=== PATIENT | male | born 1945 | race Caucasian/White ===

== ENCOUNTER 2019-08-24 14:03 | Inpatient (IN) | payer OTHER, MEDICAID ==
[~2019-08-24] VITALS: Ht 165.1 cm; Wt 107.0 kg
[~2019-08-24 14:03] MED LIST: AMLO5TAB88 MT; ATOR40TA70 PO; BACL20TA PO; GLIMEPIRIDE PO; HYDR100T26 MT; OMEP40CA34 PO; POTA8CAP20 PO; SULI200T4 PO; TAMS-11 PO; TRIC160 PO
[2019-08-24] MEDS ORDERED: VANCOMYCIN 1 G PREMIX 200 ML IV ONE (18:30)
[2019-08-24] MEDS ORDERED: PIPERACILLIN/TAZ 3.375G PREMIX 50 ML IV ONE (18:30)
[2019-08-24 19:23] LABS: BASOPHILS % 0.5 % (0.0-2.0); EOSINOPHILS % 4.7 % (0.0-5.0); HEMATOCRIT. 22.1 % (42.0-52.0); HEMOGLOBIN. 7.5 g/dL (14.0-18.0); MEAN CORPUSCULAR HEMOGLOBIN 31.1 pg (28.0-32.0); MEAN CORPUSCULAR VOLUME 91.4 fL (80.0-94.0); MEAN PLATELET VOLUME 7.7 fl (7.4-10.4); MONOCYTES % 6.1 % (2.0-8.0); NEUTROPHILS % 74.7 % (40.0-76.0); PLATELET 379 x1000/uL (130-400); RED BLOOD CELL COUNT 2.41 mill/uL (4.7-6.1); RED CELL DISTRIBUTION WIDTH 13.6 % (11.6-14.6)
[2019-08-24 19:28] LABS: CHLORIDE 109 mEq/L (98-107)
[2019-08-24 19:33] LABS: ETHANOL BLOOD < 10 mg/dL
[2019-08-24 19:35] LABS: PARTIAL THROMBOPLASTIN TIME 37.2 sec (23.4-31.0); PROTHROMBIN TIME 10.7 sec (9.6-11.0)
[2019-08-24 21:16] LABS: CLARITY URINE CLEAR (CLEAR); COLOR URINE YELLOW (YELLOW); KETONES URINE NEGATIVE (NEGATIVE); LEUKOCYTE ESTERASE URINE NEGATIVE (NEGATIVE); NITRITE URINE NEGATIVE (NEGATIVE); OCCULT BLOOD URINE NEGATIVE (NEGATIVE); PH URINE 5.5 (4.5-8.0); PROTEIN URINE 1+ (NEGATIVE); SPECIFIC GRAVITY URINE 1.012 (1.005-1.030); UROBILINOGEN URINE 0.2 E.U./dL (0.2-1.0)
[2019-08-24 21:30] LABS: *AMPHETAMINES SCREEN URINE NEGATIVE (NEGATIVE); *BARBITURATES SCREEN URINE NEGATIVE (NEGATIVE); *BENZODIAZEPINES SCREEN URINE NEGATIVE (NEGATIVE); *COCAINE SCREEN URINE NEGATIVE (NEGATIVE); CANNABINOID URINE SCREEN NEGATIVE (NEGATIVE); METHADONE URINE SCREEN NEGATIVE (NEGATIVE); OPIATES URINE SCREEN NEGATIVE (NEGATIVE); PHENCYCLIDINE URINE SCREEN NEGATIVE (NEGATIVE)
[2019-08-24 22:15] VITALS: BP 155/65
[2019-08-25 01:42] VITALS: BP 155/65
[2019-08-25] MEDS ORDERED: DEXTROSE 50% WATER 50ML SYRINGE IV PRN (01:45)
[2019-08-25 04:00] VITALS: BP 143/61
[2019-08-25] MEDS: PIPERACILLIN/TAZOBACTAM 2.25 G in DEXTROSE 5% WATER 50 ML IV SCH ×3 (05:16→20:36)
[2019-08-25] MEDS ORDERED: PIPERACILLIN/TAZOBACTAM 3.375 G in DEXT 5% WATER 100 ML IV SCH (06:00)
[2019-08-25] MEDS: BLOOD SUGAR DIAGNOSTIC STRIP TEST SCH ×4 (07:20→21:00)
[2019-08-25] MEDS: INSULIN LISPRO 100 UNITS/ML SUBCUT SCH ×4 (07:50→21:00)
[2019-08-25] MEDS: LISINOPRIL 20MG TABLET PO SCH (08:25)
[2019-08-25] MEDS: VANCOMYCIN 750 MG PREMIX 150 ML IV SCH (08:25)
[2019-08-25 16:10] LABS: TOTAL IRON BINDING CAPACITY 215 ug/dL (250-450)
[2019-08-25 20:00] VITALS: BP 133/64
[2019-08-25] MEDS: MORPHINE SULFATE 2 MG/ML CPJ (NOT FOR IM USE) IV PRN (23:11)
[2019-08-26] VITALS: BP 141/62
[2019-08-26] MEDS: PIPERACILLIN/TAZOBACTAM 2.25 G in DEXTROSE 5% WATER 50 ML IV SCH ×2 (02:53→11:07)
[2019-08-26 04:00] VITALS: BP 134/58
[2019-08-26 06:16] LABS: BASOPHILS % 0.6 % (0.0-2.0); EOSINOPHILS % 5.5 % (0.0-5.0); HEMATOCRIT. 22.1 % (42.0-52.0); HEMOGLOBIN. 7.4 g/dL (14.0-18.0); LYMPHOCYTES % 13.9 % (20.0-50.0); MEAN CORPUSCULAR HEMOGLOBIN 30.1 pg (28.0-32.0); MEAN CORPUSCULAR VOLUME 89.6 fL (80.0-94.0); MEAN PLATELET VOLUME 7.5 fl (7.4-10.4); MONOCYTES % 6.7 % (2.0-8.0); NEUTROPHILS % 73.3 % (40.0-76.0); PLATELET 342 x1000/uL (130-400); RED BLOOD CELL COUNT 2.47 mill/uL (4.7-6.1); RED CELL DISTRIBUTION WIDTH 13.8 % (11.6-14.6)
[2019-08-26] MEDS: BLOOD SUGAR DIAGNOSTIC STRIP TEST SCH ×4 (06:21→20:34)
[2019-08-26] MEDS: INSULIN LISPRO 100 UNITS/ML SUBCUT SCH ×4 (07:50→20:49)
[2019-08-26 08:00] VITALS: BP 137/59
[2019-08-26] MEDS: LISINOPRIL 20MG TABLET PO SCH (08:20)
[2019-08-26] MEDS: VANCOMYCIN 750 MG PREMIX 150 ML IV SCH (08:20)
[2019-08-26] MEDS: ACETAMINOPHEN WITH CODEINE 300/30MG TABLET PO PRN (09:41)
[2019-08-26 12:00] VITALS: BP 140/60
[2019-08-26] MEDS: FERROUS SULFATE 325MG TABLET PO SCH ×2 (12:42→17:13)
[2019-08-26] MEDS: DOCUSATE SODIUM 100MG CAPSULE PO SCH ×2 (12:42→17:13)
[2019-08-26] MEDS ORDERED: CEFTRIAXONE 2 G PREMIX 50 ML IV SCH (13:00)
[2019-08-26 16:00] VITALS: BP 149/62
[2019-08-26] MEDS: CEFTRIAXONE 2 G in DEXTROSE 5% WATER 50 ML IV SCH (17:15)
[2019-08-26 20:00] VITALS: BP 153/59
[2019-08-26] MEDS: MORPHINE SULFATE 2 MG/ML CPJ (NOT FOR IM USE) IV PRN (20:26)
[2019-08-27] VITALS: BP 168/68
[2019-08-27] MEDS: MORPHINE SULFATE 2 MG/ML CPJ (NOT FOR IM USE) IV PRN ×2 (00:01→15:12)
[2019-08-27 04:00] VITALS: BP 128/56
[2019-08-27 07:10] LABS: BASOPHILS % 0.4 % (0.0-2.0); EOSINOPHILS % 5.9 % (0.0-5.0); HEMATOCRIT. 21.7 % (42.0-52.0); HEMOGLOBIN. 7.3 g/dL (14.0-18.0); MEAN CORPUSCULAR HEMOGLOBIN 30.7 pg (28.0-32.0); MEAN CORPUSCULAR VOLUME 90.6 fL (80.0-94.0); MEAN PLATELET VOLUME 7.7 fl (7.4-10.4); MONOCYTES % 6.9 % (2.0-8.0); NEUTROPHILS % 72.8 % (40.0-76.0); PLATELET 347 x1000/uL (130-400); RED CELL DISTRIBUTION WIDTH 13.6 % (11.6-14.6)
[2019-08-27] MEDS: BLOOD SUGAR DIAGNOSTIC STRIP TEST SCH ×4 (07:22→21:48)
[2019-08-27] MEDS: INSULIN LISPRO 100 UNITS/ML SUBCUT SCH ×4 (07:23→21:00)
[2019-08-27 08:00] VITALS: BP 154/65
[2019-08-27] MEDS: DOCUSATE SODIUM 100MG CAPSULE PO SCH ×2 (08:40→16:18)
[2019-08-27] MEDS: LISINOPRIL 20MG TABLET PO SCH (08:40)
[2019-08-27] MEDS: FERROUS SULFATE 325MG TABLET PO SCH ×3 (08:40→17:26)
[2019-08-27] MEDS: ACETAMINOPHEN WITH CODEINE 300/30MG TABLET PO PRN (11:32)
[2019-08-27 12:00] VITALS: BP 155/69
[2019-08-27] MEDS: ENOXAPARIN 40MG/0.4ML SYR SUBCUT SCH (12:18)
[2019-08-27] MEDS: CEFTRIAXONE 2 G in DEXTROSE 5% WATER 50 ML IV SCH (13:31)
[2019-08-27 20:00] VITALS: BP 169/71
[2019-08-27] MEDS ORDERED: SODIUM POLYSTYRENE SULFONATE 15 G/60 ML BOT PO NR (21:00)
[2019-08-28] VITALS: BP 151/60
[2019-08-28] MEDS: MORPHINE SULFATE 2 MG/ML CPJ (NOT FOR IM USE) IV PRN ×3 (00:46→18:02)
[2019-08-28 04:00] VITALS: BP 146/71
[2019-08-28] MEDS: BLOOD SUGAR DIAGNOSTIC STRIP TEST SCH ×4 (06:11→21:00)
[2019-08-28 06:17] LABS: BASOPHILS % 0.8 % (0.0-2.0); EOSINOPHILS % 5.5 % (0.0-5.0); HEMATOCRIT. 22.8 % (42.0-52.0); HEMOGLOBIN. 7.7 g/dL (14.0-18.0); LYMPHOCYTES % 13.6 % (20.0-50.0); MEAN CORPUSCULAR VOLUME 88.8 fL (80.0-94.0); MEAN PLATELET VOLUME 7.7 fl (7.4-10.4); MONOCYTES % 5.6 % (2.0-8.0); NEUTROPHILS % 74.5 % (40.0-76.0); PLATELET 338 x1000/uL (130-400); RED BLOOD CELL COUNT 2.57 mill/uL (4.7-6.1); RED CELL DISTRIBUTION WIDTH 13.6 % (11.6-14.6)
[2019-08-28] MEDS: INSULIN LISPRO 100 UNITS/ML SUBCUT SCH ×4 (07:50→21:00)
[2019-08-28 08:00] VITALS: BP 159/71
[2019-08-28] MEDS: ENOXAPARIN 40MG/0.4ML SYR SUBCUT SCH (08:58)
[2019-08-28] MEDS: FERROUS SULFATE 325MG TABLET PO SCH ×3 (08:58→17:09)
[2019-08-28] MEDS: DOCUSATE SODIUM 100MG CAPSULE PO SCH ×2 (08:58→17:09)
[2019-08-28 12:00] VITALS: BP 156/67
[2019-08-28] MEDS: LISINOPRIL 20MG TABLET PO SCH (12:20)
[2019-08-28] MEDS: CEFTRIAXONE 2 G in DEXTROSE 5% WATER 50 ML IV SCH (14:17)
[2019-08-28 16:00] VITALS: BP 150/67
[2019-08-28 20:00] VITALS: BP 145/69
[2019-08-28] MEDS ORDERED: SODIUM POLYSTYRENE SULFONATE 15 G/60 ML BOT PO NR (20:00)
[2019-08-29] VITALS: BP 137/62
[2019-08-29] MEDS: MORPHINE SULFATE 2 MG/ML CPJ (NOT FOR IM USE) IV PRN (03:24)
[2019-08-29 04:00] VITALS: BP 130/63
[2019-08-29] MEDS: BLOOD SUGAR DIAGNOSTIC STRIP TEST SCH ×4 (07:20→21:00)
[2019-08-29] MEDS: INSULIN LISPRO 100 UNITS/ML SUBCUT SCH ×4 (07:50→21:00)
[2019-08-29] MEDS ORDERED: SODIUM BICARBONATE 4% (2.4MEQ) 5ML VIAL IV ONE (08:06)
[2019-08-29] MEDS ORDERED: LIDOCAINE HCL 1% 20ML VIAL (Pyxis) INJ ONE (08:06)
[2019-08-29 08:24] LABS: BASOPHILS % 0.5 % (0.0-2.0); EOSINOPHILS % 4.8 % (0.0-5.0); HEMATOCRIT. 22.2 % (42.0-52.0); HEMOGLOBIN. 7.6 g/dL (14.0-18.0); LYMPHOCYTES % 14.3 % (20.0-50.0); MEAN CORPUSCULAR HEMOGLOBIN 30.7 pg (28.0-32.0); MEAN CORPUSCULAR VOLUME 89.4 fL (80.0-94.0); MEAN PLATELET VOLUME 7.8 fl (7.4-10.4); MONOCYTES % 7.1 % (2.0-8.0); NEUTROPHILS % 73.3 % (40.0-76.0); PLATELET 335 x1000/uL (130-400); RED BLOOD CELL COUNT 2.48 mill/uL (4.7-6.1); RED CELL DISTRIBUTION WIDTH 13.9 % (11.6-14.6)
[2019-08-29] MEDS: CEFTRIAXONE 2 G in DEXTROSE 5% WATER 50 ML IV SCH (11:49)
[2019-08-29] MEDS: DOCUSATE SODIUM 100MG CAPSULE PO SCH ×2 (11:49→17:00)
[2019-08-29] MEDS: FERROUS SULFATE 325MG TABLET PO SCH ×3 (11:49→17:50)
[2019-08-29] MEDS: ENOXAPARIN 40MG/0.4ML SYR SUBCUT SCH (11:49)
[2019-08-29 12:00] VITALS: BP 147/56
[2019-08-29] MEDS: LISINOPRIL 20MG TABLET PO SCH (12:38)
[2019-08-29 20:00] VITALS: BP 149/59
[2019-08-30] VITALS: BP 135/53
[2019-08-30] MEDS: ACETAMINOPHEN WITH CODEINE 300/30MG TABLET PO PRN ×3 (03:48→19:42)
[2019-08-30 04:00] VITALS: BP 150/61
[2019-08-30] MEDS: BLOOD SUGAR DIAGNOSTIC STRIP TEST SCH ×4 (06:07→21:00)
[2019-08-30] MEDS: INSULIN LISPRO 100 UNITS/ML SUBCUT SCH ×4 (07:37→21:00)
[2019-08-30 08:00] VITALS: BP 154/58
[2019-08-30] MEDS: DOCUSATE SODIUM 100MG CAPSULE PO SCH ×2 (08:33→17:33)
[2019-08-30] MEDS: FERROUS SULFATE 325MG TABLET PO SCH ×3 (08:33→17:33)
[2019-08-30] MEDS: LISINOPRIL 20MG TABLET PO SCH (08:34)
[2019-08-30] MEDS: ENOXAPARIN 40MG/0.4ML SYR SUBCUT SCH (08:35)
[2019-08-30 12:00] VITALS: BP 150/60
[2019-08-30] MEDS: CEFTRIAXONE 2 G in DEXTROSE 5% WATER 50 ML IV SCH (13:37)
[2019-08-30 16:00] VITALS: BP 137/59
[2019-08-30 20:00] VITALS: BP 140/60
[2019-08-31] VITALS: BP 145/47
[2019-08-31] MEDS: ACETAMINOPHEN WITH CODEINE 300/30MG TABLET PO PRN (02:15)
[2019-08-31 04:00] VITALS: BP 134/50
[2019-08-31] MEDS: BLOOD SUGAR DIAGNOSTIC STRIP TEST SCH ×2 (07:20→12:07)
[2019-08-31] MEDS: INSULIN LISPRO 100 UNITS/ML SUBCUT SCH ×2 (07:50→12:43)
[2019-08-31 08:00] VITALS: BP 152/59
[2019-08-31] MEDS: ENOXAPARIN 40MG/0.4ML SYR SUBCUT SCH (09:19)
[2019-08-31] MEDS: FERROUS SULFATE 325MG TABLET PO SCH ×2 (09:19→12:44)
[2019-08-31] MEDS: DOCUSATE SODIUM 100MG CAPSULE PO SCH (09:19)
[2019-08-31] MEDS: LISINOPRIL 20MG TABLET PO SCH (09:20)
[2019-08-31 12:00] VITALS: BP 129/63
[2019-08-31 12:08] VITALS: BP 129/63
[2019-08-31] MEDS: CEFTRIAXONE 2 G in DEXTROSE 5% WATER 50 ML IV SCH (14:17)
== END 2019-08-31 15:44 | disposition home health service (06) | DRG 863 ==
LOC: ER 14:03 → 6EST 20:09 → ENRESERV 20:29
PROVIDERS: ADMIT Internal Medicine; ATTEND Internal Medicine
PROC: 02HV33Z Insertion of Infusion Device into Superior Vena Cava, Percutaneous Approach (ICD-10-PCS; principal; 2019-08-29)
PROC: B518ZZA Fluoroscopy of Superior Vena Cava, Guidance (ICD-10-PCS; 2019-08-29)
PROC: B548ZZA Ultrasonography of Superior Vena Cava, Guidance (ICD-10-PCS; 2019-08-29)
DX: T81.49XA Infection following a procedure, other surgical site, initial encounter (principal); E11.52 Type 2 diabetes mellitus with diabetic peripheral angiopathy with gangrene; E44.0 Moderate protein-calorie malnutrition; M86.8X7 Other osteomyelitis, ankle and foot; L97.429 Non-pressure chronic ulcer of left heel and midfoot with unspecified severity; N18.4 Chronic kidney disease, stage 4 (severe); L03.116 Cellulitis of left lower limb; T87.54 Necrosis of amputation stump, left lower extremity; E11.69 Type 2 diabetes mellitus with other specified complication; E11.621 Type 2 diabetes mellitus with foot ulcer; E11.22 Type 2 diabetes mellitus with diabetic chronic kidney disease; E78.5 Hyperlipidemia, unspecified; E87.8 Other disorders of electrolyte and fluid balance, not elsewhere classified; E78.00 Pure hypercholesterolemia, unspecified; D64.9 Anemia, unspecified; I12.9 Hypertensive chronic kidney disease with stage 1 through stage 4 chronic kidney disease, or unspecified chronic kidney disease; Y83.8 Other surgical procedures as the cause of abnormal reaction of the patient, or of later complication, without mention of misadventure at the time of the procedure; E66.9 Obesity, unspecified; E11.40 Type 2 diabetes mellitus with diabetic neuropathy, unspecified; E87.5 Hyperkalemia; Z68.39 Body mass index [BMI] 39.0-39.9, adult; Z87.891 Personal history of nicotine dependence; Z98.41 Cataract extraction status, right eye; Z98.42 Cataract extraction status, left eye; Y92.89 Other specified places as the place of occurrence of the external cause
CPT/HCPCS: 36415; 36573; 71045; 73630; 73721; 76937; 80048; 80053; 80202; 80305; 80320; 81003; 82728; 82962; 83540; 83550; 83605; 83880; 84145; 84484; 85025; 87070; 87077; 87186; 93005; 96365; 96368; 99285; C1725; J0696; J1650; J1815; J2270; J2543; J3370; J3490; J7040; J7060; G0480

== ENCOUNTER 2020-10-18 06:53 | Inpatient (IN) | payer OTHER, MEDICAID ==
[~2020-10-18] VITALS: Ht 165.1 cm; Wt 117.0 kg
[~2020-10-18 06:53] MED LIST changes: +OMEP40CA12 PO; -OMEP40CA34 PO
[2020-10-18] MEDS ORDERED: ATROPINE SULFATE 1MG/10ML SYR IV ONE (07:30)
[2020-10-18 07:51] LABS: HEMATOCRIT. 23.9 % (42.0-52.0); HEMOGLOBIN. 7.8 g/dL (14.0-18.0); MEAN CORPUSCULAR HEMOGLOBIN 29.5 pg (28.0-32.0); MEAN CORPUSCULAR VOLUME 90.7 fL (80.0-94.0); MEAN PLATELET VOLUME 8.3 fl (7.4-10.4); PLATELET 276 x1000/uL (130-400); RED BLOOD CELL COUNT 2.64 mill/uL (4.7-6.1); RED CELL DISTRIBUTION WIDTH 15.1 % (11.6-14.6)
[2020-10-18 08:01] LABS: CHLORIDE 104 mEq/L (98-107)
[2020-10-18 08:22] LABS: NUCLEATED RED BLOOD CELLS 1 /100 WBC; PLATELET ESTIMATE NORMAL
[2020-10-18] MEDS ORDERED: FUROSEMIDE 100MG/10ML VIAL IV STA (08:50)
[2020-10-18] MEDS ORDERED: ALBUTEROL (0.083%) 2.5MG/3ML NEB HHN ONE (09:00)
[2020-10-18] MEDS ORDERED: SODIUM BICARBONATE 8.4% 1 MEQ/ML 50ML SYR IV ONE (09:00)
[2020-10-18] MEDS ORDERED: INSULIN REGULAR (HUMULIN R) 300UNITS/3ML VIAL IV ONE (09:00)
[2020-10-18] MEDS ORDERED: CALCIUM CHLORIDE 1GM/10ML SYR IV ONE (09:00)
[2020-10-18] MEDS ORDERED: DEXTROSE 50% WATER 50ML SYRINGE IV ONE (09:00)
[2020-10-18] MEDS ORDERED: SODIUM BICARBONATE 8.4% 1 MEQ/ML 50ML SYR IV NR (10:15)
[2020-10-18] MEDS ORDERED: SODIUM POLYSTYRENE SULFONATE 15 G/60 ML BOT PO NR (10:15)
[2020-10-18 11:12] LABS: PARTIAL THROMBOPLASTIN TIME 39.8 sec (23.4-31.0)
[2020-10-18 11:48] LABS: BG CARBOXYHEMOGLOBIN 0.2 % (0.5-1.5); BG DEOXYHEMOGLOBIN 2.5 % (0.0-5.0); BG FRACTION INSPIRED OXYGEN 36; BG HCO3 ACT 26.2 mmol/L (22.0-26.0); BG METHEMOGLOBIN 0.5 % (0.0-1.5); BG OXYGEN SATURATION 97.5 % (92.0-98.5); BG OXYHEMOGLOBIN 96.8 % (94.0-97.0); BG PCO2 44.8 mmHg (35.0-45.0); BG PH 7.385 (7.350-7.450); BG PO2 115.8 mmHg (75.0-100.0); BG SAMPLE SITE RIGHT BRACHIAL; BG VENT MODE NASAL CANNULA
[2020-10-18] MEDS ORDERED: ONDANSETRON HCL 4MG/2ML INJ IV PRN (12:45)
[2020-10-18] MEDS ORDERED: DEXTROSE 50% WATER 50ML SYRINGE IV PRN (12:45)
[2020-10-18] MEDS ORDERED: HYDROCODONE/ACETAMINOPHEN 5/325MG TABLET PO NR (15:00)
[2020-10-18] MEDS: BLOOD SUGAR DIAGNOSTIC STRIP TEST SCH ×2 (18:34→21:55)
[2020-10-18] MEDS: INSULIN LISPRO 100 UNITS/ML SUBCUT SCH ×2 (18:34→21:00)
[2020-10-18 18:58] VITALS: BP 144/60
[2020-10-18 20:00] VITALS: BP 106/62
[2020-10-18] MEDS: HYDROCODONE/ACETAMINOPHEN 5/325MG TABLET PO PRN (22:25)
[2020-10-19] VITALS: BP 150/60
[2020-10-19] MEDS: EPOETIN ALFA-EPBX 10,000 UNIT/ML VIAL SUBCUT SCH (00:05)
[2020-10-19 04:00] VITALS: BP 90/60
[2020-10-19] MEDS: INSULIN LISPRO 100 UNITS/ML SUBCUT SCH ×4 (06:54→20:31)
[2020-10-19] MEDS: BLOOD SUGAR DIAGNOSTIC STRIP TEST SCH ×4 (06:54→20:31)
[2020-10-19 07:07] LABS: HEMATOCRIT. 22.9 % (42.0-52.0); HEMOGLOBIN. 7.6 g/dL (14.0-18.0); MEAN CORPUSCULAR HEMOGLOBIN 29.5 pg (28.0-32.0); MEAN CORPUSCULAR VOLUME 89.2 fL (80.0-94.0); MEAN PLATELET VOLUME 8.3 fl (7.4-10.4); PLATELET 276 x1000/uL (130-400); RED BLOOD CELL COUNT 2.57 mill/uL (4.7-6.1); RED CELL DISTRIBUTION WIDTH 14.7 % (11.6-14.6)
[2020-10-19 07:29] LABS: PHOSPHORUS 4.7 mg/dL (2.5-4.9)
[2020-10-19 08:00] VITALS: BP 124/59
[2020-10-19] MEDS ORDERED: PNEUMOCOCCAL 23-VAL P-SAC VAC 0.5 ML IM ONE (09:00)
[2020-10-19 12:00] VITALS: BP 124/64
[2020-10-19] MEDS ORDERED: INFLUENZA VACCINE 05/PF 0.5 ML VIAL IM ONE (12:00)
[2020-10-19 16:00] VITALS: BP 125/57
[2020-10-19] MEDS: HYDROCODONE/ACETAMINOPHEN 5/325MG TABLET PO PRN ×2 (17:34→23:10)
[2020-10-19] MEDS: AMLODIPINE 5MG TABLET PO SCH (18:24)
[2020-10-19 19:45] LABS: TOTAL IRON BINDING CAPACITY 233 ug/dL (250-450)
[2020-10-19 20:00] VITALS: BP 137/50
[2020-10-19] MEDS: ATORVASTATIN CALCIUM 40MG TABLET PO SCH (21:22)
[2020-10-20] VITALS (7 sets, daily range): BP systolic 115–135; BP diastolic 39–77
[2020-10-20 02:04] LABS: PLATELET ESTIMATE NORMAL
[2020-10-20] MEDS: BLOOD SUGAR DIAGNOSTIC STRIP TEST SCH ×4 (05:58→20:45)
[2020-10-20] MEDS: INSULIN LISPRO 100 UNITS/ML SUBCUT SCH ×4 (06:22→20:46)
[2020-10-20 06:52] LABS: HEMATOCRIT. 22.2 % (42.0-52.0); HEMOGLOBIN. 7.5 g/dL (14.0-18.0); MEAN CORPUSCULAR HEMOGLOBIN 30.3 pg (28.0-32.0); MEAN CORPUSCULAR VOLUME 90.2 fL (80.0-94.0); PLATELET 273 x1000/uL (130-400); RED BLOOD CELL COUNT 2.46 mill/uL (4.7-6.1); RED CELL DISTRIBUTION WIDTH 14.8 % (11.6-14.6)
[2020-10-20 07:09] LABS: PHOSPHORUS 4.3 mg/dL (2.5-4.9)
[2020-10-20 07:19] LABS: HEPATITIS B SURFACE AB < 3.1 mIU/mL
[2020-10-20 07:30] LABS: HEPATITIS B SURFACE ANTIGEN NEGATIVE
[2020-10-20] MEDS: AMLODIPINE 5MG TABLET PO SCH ×2 (09:11→22:00)
[2020-10-20] MEDS: HYDROCODONE/ACETAMINOPHEN 5/325MG TABLET PO PRN (10:46)
[2020-10-20] MEDS ORDERED: NITROGLYCERIN 0.4MG TABLET SL SL PRN (11:30)
[2020-10-20 19:59] LABS: PLATELET ESTIMATE NORMAL
[2020-10-20] MEDS: EPOETIN ALFA-EPBX 10,000 UNIT/ML VIAL SUBCUT SCH (21:00)
[2020-10-20] MEDS: ATORVASTATIN CALCIUM 40MG TABLET PO SCH (22:00)
[2020-10-21] VITALS: BP 129/89
[2020-10-21] MEDS: BLOOD SUGAR DIAGNOSTIC STRIP TEST SCH ×3 (06:39→21:37)
[2020-10-21] MEDS: INSULIN LISPRO 100 UNITS/ML SUBCUT SCH ×3 (06:40→21:39)
[2020-10-21 07:16] LABS: PHOSPHORUS 3.3 mg/dL (2.5-4.9)
[2020-10-21 07:31] LABS: HEMATOCRIT. 24.8 % (42.0-52.0); HEMOGLOBIN. 8.2 g/dL (14.0-18.0); MEAN CORPUSCULAR HEMOGLOBIN 29.4 pg (28.0-32.0); MEAN CORPUSCULAR VOLUME 88.8 fL (80.0-94.0); MEAN PLATELET VOLUME 8.2 fl (7.4-10.4); PLATELET 299 x1000/uL (130-400); RED BLOOD CELL COUNT 2.79 mill/uL (4.7-6.1); RED CELL DISTRIBUTION WIDTH 14.3 % (11.6-14.6)
[2020-10-21 08:00] VITALS: BP 156/52
[2020-10-21] MEDS: AMLODIPINE 5MG TABLET PO SCH ×2 (09:16→21:35)
[2020-10-21 12:00] VITALS: BP 131/57
[2020-10-21] MEDS ORDERED: CEFTRIAXONE 1 G PREMIX 50 ML IV SCH (13:00)
[2020-10-21] MEDS: ACETAMINOPHEN 325MG TABLET PO PRN ×2 (13:09→21:35)
[2020-10-21] MEDS: CEFTRIAXONE 1,000 MG in DEXTROSE 5% WATER 50 ML IV SCH (15:01)
[2020-10-21 15:34] LABS: PLATELET ESTIMATE NORMAL
[2020-10-21 16:00] VITALS: BP 130/56
[2020-10-21] MEDS ORDERED: VANCOMYCIN 1,750 MG in DEXT 5% WATER 500 ML IV SCH (18:00)
[2020-10-21 20:00] VITALS: BP 111/57
[2020-10-22] VITALS: BP 127/58
[2020-10-22] MEDS: ACETAMINOPHEN 325MG TABLET PO PRN ×3 (03:34→20:20)
[2020-10-22 04:00] VITALS: BP 137/56
[2020-10-22] MEDS: BLOOD SUGAR DIAGNOSTIC STRIP TEST SCH ×4 (06:37→21:00)
[2020-10-22] MEDS: INSULIN LISPRO 100 UNITS/ML SUBCUT SCH ×4 (06:42→20:24)
[2020-10-22 07:26] LABS: HEMATOCRIT. 23.1 % (42.0-52.0); HEMOGLOBIN. 7.5 g/dL (14.0-18.0); MEAN CORPUSCULAR HEMOGLOBIN 28.8 pg (28.0-32.0); MEAN CORPUSCULAR VOLUME 88.7 fL (80.0-94.0); PLATELET 250 x1000/uL (130-400); RED BLOOD CELL COUNT 2.61 mill/uL (4.7-6.1); RED CELL DISTRIBUTION WIDTH 14.4 % (11.6-14.6)
[2020-10-22 08:00] VITALS: BP 152/52
[2020-10-22 08:22] LABS: PHOSPHORUS 2.2 mg/dL (2.5-4.9)
[2020-10-22] MEDS: AMLODIPINE 5MG TABLET PO SCH ×2 (08:36→20:21)
[2020-10-22] MEDS: CEFTRIAXONE 1,000 MG in DEXTROSE 5% WATER 50 ML IV SCH (13:03)
[2020-10-22 15:05] LABS: PLATELET ESTIMATE NORMAL
[2020-10-22 16:00] VITALS: BP 128/54
[2020-10-22 20:00] VITALS: BP 126/50
[2020-10-23] VITALS: BP 139/89
[2020-10-23 04:00] VITALS: BP 142/51
[2020-10-23 06:33] LABS: HEMOGLOBIN. 8.4 g/dL (14.0-18.0); MEAN CORPUSCULAR HEMOGLOBIN 29.6 pg (28.0-32.0); MEAN CORPUSCULAR VOLUME 91.1 fL (80.0-94.0); MEAN PLATELET VOLUME 7.9 fl (7.4-10.4); PLATELET 241 x1000/uL (130-400); RED BLOOD CELL COUNT 2.85 mill/uL (4.7-6.1); RED CELL DISTRIBUTION WIDTH 14.5 % (11.6-14.6)
[2020-10-23] MEDS: BLOOD SUGAR DIAGNOSTIC STRIP TEST SCH ×4 (06:39→21:19)
[2020-10-23] MEDS: INSULIN LISPRO 100 UNITS/ML SUBCUT SCH ×4 (06:41→21:40)
[2020-10-23 07:50] LABS: PHOSPHORUS 3.9 mg/dL (2.5-4.9)
[2020-10-23 08:00] VITALS: BP 138/56
[2020-10-23] MEDS: AMLODIPINE 5MG TABLET PO SCH ×2 (08:56→21:26)
[2020-10-23] MEDS: ACETAMINOPHEN 325MG TABLET PO PRN (08:59)
[2020-10-23 12:00] VITALS: BP 123/50
[2020-10-23] MEDS ORDERED: VANCOMYCIN 1250MG in DEXTROSE 5% WATER 250ML IV NR (13:00)
[2020-10-23] MEDS: CEFTRIAXONE 1,000 MG in DEXTROSE 5% WATER 50 ML IV SCH (13:29)
[2020-10-23 14:51] LABS: PLATELET ESTIMATE NORMAL
[2020-10-23 16:00] VITALS: BP 130/51
[2020-10-23 20:00] VITALS: BP 138/58
[2020-10-23] MEDS: CEFAZOLIN 1000MG PREMIX 50 ML IV SCH (21:24)
[2020-10-23] MEDS: EPOETIN ALFA-EPBX 10,000 UNIT/ML VIAL SUBCUT SCH (21:39)
[2020-10-24 04:00] VITALS: BP 139/58
[2020-10-24 05:13] VITALS: BP 138/57
[2020-10-24] MEDS: BLOOD SUGAR DIAGNOSTIC STRIP TEST SCH ×4 (05:39→21:35)
[2020-10-24] MEDS: INSULIN LISPRO 100 UNITS/ML SUBCUT SCH ×4 (05:46→20:18)
[2020-10-24 07:53] LABS: BASOPHILS % 0.5 % (0.0-2.0); EOSINOPHILS % 10.9 % (0.0-5.0); HEMATOCRIT. 23.3 % (42.0-52.0); HEMOGLOBIN. 7.6 g/dL (14.0-18.0); LYMPHOCYTES % 8.6 % (20.0-50.0); MEAN CORPUSCULAR VOLUME 88.5 fL (80.0-94.0); MEAN PLATELET VOLUME 8.1 fl (7.4-10.4); MONOCYTES % 13.5 % (2.0-8.0); NEUTROPHILS % 66.5 % (40.0-76.0); PLATELET 224 x1000/uL (130-400); RED BLOOD CELL COUNT 2.64 mill/uL (4.7-6.1); RED CELL DISTRIBUTION WIDTH 14.2 % (11.6-14.6)
[2020-10-24 08:00] VITALS: BP 137/58
[2020-10-24 08:11] LABS: PHOSPHORUS 3.6 mg/dL (2.5-4.9)
[2020-10-24] MEDS: CEFAZOLIN 1000MG PREMIX 50 ML IV SCH (08:24)
[2020-10-24] MEDS: AMLODIPINE 5MG TABLET PO SCH ×2 (08:24→20:17)
[2020-10-24] MEDS: ACETAMINOPHEN 325MG TABLET PO PRN (08:36)
[2020-10-24 12:00] VITALS: BP 113/66
[2020-10-24 16:00] VITALS: BP 123/55
[2020-10-24] MEDS: HYDROCODONE/ACETAMINOPHEN 5/325MG TABLET PO PRN (17:43)
[2020-10-24 20:00] VITALS: BP 139/63
[2020-10-24] MEDS: TRAMADOL 50MG TABLET PO PRN (20:18)
[2020-10-24] MEDS ORDERED: VANCOMYCIN 1250MG in DEXTROSE 5% WATER 250ML IV SCH (21:00)
[2020-10-25] VITALS: BP 128/52
[2020-10-25 04:00] VITALS: BP 140/56
[2020-10-25] MEDS: TRAMADOL 50MG TABLET PO PRN (04:51)
[2020-10-25] MEDS: INSULIN LISPRO 100 UNITS/ML SUBCUT SCH ×4 (06:05→20:33)
[2020-10-25] MEDS: BLOOD SUGAR DIAGNOSTIC STRIP TEST SCH ×4 (06:07→20:29)
[2020-10-25 07:35] LABS: BASOPHILS % 0.5 % (0.0-2.0); EOSINOPHILS % 13.4 % (0.0-5.0); HEMOGLOBIN. 7.8 g/dL (14.0-18.0); LYMPHOCYTES % 8.3 % (20.0-50.0); MEAN CORPUSCULAR HEMOGLOBIN 28.7 pg (28.0-32.0); MEAN CORPUSCULAR VOLUME 87.8 fL (80.0-94.0); MEAN PLATELET VOLUME 8.2 fl (7.4-10.4); MONOCYTES % 10.6 % (2.0-8.0); NEUTROPHILS % 67.2 % (40.0-76.0); PLATELET 240 x1000/uL (130-400); RED BLOOD CELL COUNT 2.73 mill/uL (4.7-6.1); RED CELL DISTRIBUTION WIDTH 14.4 % (11.6-14.6)
[2020-10-25 08:00] VITALS: BP 126/54
[2020-10-25 08:12] LABS: PHOSPHORUS 3.6 mg/dL (2.5-4.9)
[2020-10-25] MEDS: AMLODIPINE 5MG TABLET PO SCH ×2 (08:58→20:29)
[2020-10-25 12:00] VITALS: BP 162/62
[2020-10-25] MEDS: HYDROCODONE/ACETAMINOPHEN 5/325MG TABLET PO PRN (13:32)
[2020-10-25 16:00] VITALS: BP 127/47
[2020-10-25 20:00] VITALS: BP_SYST 127; BP_SYST 128; BP_DIAS 77; BP_DIAS 81
[2020-10-25] MEDS ORDERED: VANCOMYCIN 1250MG in DEXTROSE 5% WATER 250ML IV NR (21:00)
[2020-10-26] VITALS: BP 138/55
[2020-10-26] MEDS: TRAMADOL 50MG TABLET PO PRN ×2 (03:53→12:25)
[2020-10-26 04:00] VITALS: BP 135/56
[2020-10-26] MEDS: BLOOD SUGAR DIAGNOSTIC STRIP TEST SCH ×3 (06:18→16:55)
[2020-10-26] MEDS: INSULIN LISPRO 100 UNITS/ML SUBCUT SCH ×3 (06:18→17:11)
[2020-10-26 08:00] VITALS: BP 148/54
[2020-10-26 08:47] LABS: BASOPHILS % 0.4 % (0.0-2.0); EOSINOPHILS % 12.7 % (0.0-5.0); HEMATOCRIT. 23.5 % (42.0-52.0); HEMOGLOBIN. 7.7 g/dL (14.0-18.0); LYMPHOCYTES % 10.5 % (20.0-50.0); MEAN CORPUSCULAR HEMOGLOBIN 28.6 pg (28.0-32.0); MEAN PLATELET VOLUME 8.5 fl (7.4-10.4); MONOCYTES % 8.8 % (2.0-8.0); NEUTROPHILS % 67.6 % (40.0-76.0); PLATELET 268 x1000/uL (130-400); RED BLOOD CELL COUNT 2.68 mill/uL (4.7-6.1); RED CELL DISTRIBUTION WIDTH 14.5 % (11.6-14.6)
[2020-10-26] MEDS ORDERED: DAPTOMYCIN 250 MG in SODIUM CHLORIDE 0.9% 50 ML IV SCH (09:00)
[2020-10-26 09:09] LABS: PHOSPHORUS 2.9 mg/dL (2.5-4.9)
[2020-10-26] MEDS: AMLODIPINE 5MG TABLET PO SCH (09:29)
[2020-10-26] MEDS ORDERED: DAPTOMYCIN 700 MG in SODIUM CHLORIDE 0.9% 50 ML IV SCH (11:00)
[2020-10-26] MEDS ORDERED: LIDOCAINE HCL 1% 20ML VIAL (Pyxis) INJ ONE (11:27)
[2020-10-26] MEDS ORDERED: SODIUM BICARBONATE 4% (2.4MEQ) 5ML VIAL IV ONE (11:27)
[2020-10-26 12:00] VITALS: BP 130/41
[2020-10-26 16:00] VITALS: BP 149/62
[2020-10-26 17:19] VITALS: BP 149/62
== END 2020-10-26 19:05 | disposition home health service (06) | DRG 314 ==
LOC: ER 06:53 → 8WST 11:17 → ENRESERV 17:11
PROVIDERS: ADMIT Internal Medicine; ATTEND Internal Medicine
PROC: 5A1D70Z Performance of Urinary Filtration, Intermittent, Less than 6 Hours Per Day (ICD-10-PCS; 2020-10-18)
PROC: 05HM33Z Insertion of Infusion Device into Right Internal Jugular Vein, Percutaneous Approach (ICD-10-PCS; 2020-10-18)
PROC: B543ZZA Ultrasonography of Right Jugular Veins, Guidance (ICD-10-PCS; 2020-10-18)
PROC: 02HV33Z Insertion of Infusion Device into Superior Vena Cava, Percutaneous Approach (ICD-10-PCS; principal; 2020-10-26)
PROC: B5181ZA Fluoroscopy of Superior Vena Cava using Low Osmolar Contrast, Guidance (ICD-10-PCS; 2020-10-26)
PROC: B548ZZA Ultrasonography of Superior Vena Cava, Guidance (ICD-10-PCS; 2020-10-26)
DX: T80.211A Bloodstream infection due to central venous catheter, initial encounter (principal); J96.90 Respiratory failure, unspecified, unspecified whether with hypoxia or hypercapnia; A41.02 Sepsis due to Methicillin resistant Staphylococcus aureus; N17.9 Acute kidney failure, unspecified; N18.4 Chronic kidney disease, stage 4 (severe); E44.0 Moderate protein-calorie malnutrition; E87.2 Acidosis; Z68.41 Body mass index [BMI] 40.0-44.9, adult; E87.5 Hyperkalemia; I48.91 Unspecified atrial fibrillation; R74.01 Elevation of levels of liver transaminase levels; E66.9 Obesity, unspecified; D64.9 Anemia, unspecified; E78.5 Hyperlipidemia, unspecified; E11.621 Type 2 diabetes mellitus with foot ulcer; I12.9 Hypertensive chronic kidney disease with stage 1 through stage 4 chronic kidney disease, or unspecified chronic kidney disease; E11.22 Type 2 diabetes mellitus with diabetic chronic kidney disease; L97.529 Non-pressure chronic ulcer of other part of left foot with unspecified severity; I48.0 Paroxysmal atrial fibrillation; Y84.8 Other medical procedures as the cause of abnormal reaction of the patient, or of later complication, without mention of misadventure at the time of the procedure; Z20.822 Contact with and (suspected) exposure to COVID-19; Z82.49 Family history of ischemic heart disease and other diseases of the circulatory system; Z99.2 Dependence on renal dialysis; Z83.3 Family history of diabetes mellitus; Z79.899 Other long term (current) drug therapy; Z89.422 Acquired absence of other left toe(s); I73.9 Peripheral vascular disease, unspecified; R07.89 Other chest pain; B95.61 Methicillin susceptible Staphylococcus aureus infection as the cause of diseases classified elsewhere
CPT/HCPCS: 36415; 36556; 36573; 36600; 71045; 76770; 76937; 80048; 80053; 80202; 82375; 82550; 82805; 82962; 83540; 83550; 83735; 83880; 84100; 84484; 85025; 86705; 86706; 86803; 87070; 87077; 87186; 87340; 87426; 90686; 93005; 93306; 93970; 94640; 97116; 97162; 99291; A6261; C1725; C1752; C1769; C1887; J0461; J0690; J0696; J0878; J0885; J1815; J1940; J2405; J3370; J3490; J7040; J7060